=== PATIENT | male | born 1935 | race Caucasian/White ===

== ENCOUNTER 2021-09-11 15:29 | Inpatient (IN) | payer MEDICARE, OTHER ==
[~2021-09-11] VITALS: Ht 170.2 cm; Wt 54.6 kg
[2021-09-11] MEDS ORDERED: MULT-213 GT (16:09)
[2021-09-11] MEDS ORDERED: APLXABAN GT (16:09)
[2021-09-11] MEDS ORDERED: CHLO473M3 PO (16:09)
[2021-09-11] MEDS ORDERED: NA P133E RC (16:09)
[2021-09-11] MEDS ORDERED: AMIN30LI2 GT (16:09)
[2021-09-11] MEDS ORDERED: ACET-2605 GT (16:09)
[2021-09-11] MEDS ORDERED: ZINC SULFATE GT (16:09)
[2021-09-11] MEDS ORDERED: ASCO500C18 GT (16:09)
[2021-09-11] MEDS ORDERED: MAG355OR18 GT (16:09)
[2021-09-11] MEDS ORDERED: ACET-2154 GT (16:09)
[2021-09-11] MEDS ORDERED: METO50TA16 GT (16:09)
[2021-09-11 16:13] LABS: HEMATOCRIT 31.3 % (36.7-47.1); MEAN CORPUSCULAR HEMOGLOBIN 29.9 uug (23.8-33.4); MEAN CORPUSCULAR VOLUME 91.4 fL (73.0-96.2); PLATELET COUNT (AUTO) 632 K/uL (152-348)
[2021-09-11] MEDS ORDERED: IV NORMAL SALINE 1000 ML BAG IV ONE (16:30)
[2021-09-11 16:32] LABS: ALANINE AMINOTRANSFERASE 31 U/L (16-63); ALKALINE PHOSPHATASE 95 U/L (50-136); ASPARTATE AMINOTRANSFERASE 20 U/L (15-37); BILIRUBIN,DIRECT 0.1 mg/dL (0.0-0.2); BILIRUBIN,TOTAL 0.3 mg/dL (0.2-1.0); CARBON DIOXIDE 27 mmol/L (21-32); CHLORIDE 115 mmol/L (98-107); CREATININE 1.3 mg/dL (0.6-1.3); GLUCOSE 130 mg/dL (74-106); POTASSIUM 5.1 mmol/L (3.5-5.1); TOTAL PROTEIN, SERUM 5.7 g/dL (6.4-8.2); UREA NITROGEN, BLOOD 55 mg/dL (7-18)
--- NOTE | 2021-09-11 16:43 | NUR ---
Dr Garcia signed consent for IV contrasted CTs, placed in the chart.
[2021-09-11] MEDS ORDERED: SWABABLE VALVE TRANSFER SET EA MC ONE (16:58)
[2021-09-11] MEDS ORDERED: IV NORMAL SALINE 250 ML IV ONE (16:58)
[2021-09-11] MEDS ORDERED: IOHEXOL 350 100 ML INFUS..BTL ONE (16:58)
--- NOTE | 2021-09-11 17:02 | NUR ---
Pt out of ER for Ct scan.
[2021-09-11] MEDS ORDERED: IV 1/2NS 1000 ML 1,000 ML IV ONE (17:30)
--- NOTE | 2021-09-11 17:50 | NUR ---
Urine collected and sent to Lab, pt had x1 green water consistency BM.
[2021-09-11 17:56] LABS: *BILIRUBIN,URIN NEGATIVE (NEGATIVE); *CLARITY,URINE CLEAR (CLEAR); *COLOR,URINE YELLOW (YELLOW); *KETONES,URINE NEGATIVE (NEGATIVE); *UROBILINOGEN,URINE 0.2 E.U./dl (NORMAL); LEUKOCYTE ESTERASE ,URINE NEGATIVE (NEGATIVE); NITRITE, URINE NEGATIVE (NEGATIVE); PH,URINE 6.5 (5.0-8.0); UGLUCOSE NEGATIVE (NEGATIVE)
[2021-09-11] MEDS ORDERED: VANCOMYCIN IV 1,000 MG in IV DEXTROSE 5% 250 ML IV ONE (18:15)
[2021-09-11] MEDS ORDERED: PIPERACILLIN SODIUM/TAZOBACTAM 3.375 G in IV DEXTROSE 5% 50 ML IV ONE (18:15)
[2021-09-11] MEDS ORDERED: VANCOMYCIN IV 200 ML ONE (18:22)
[2021-09-11] MEDS ORDERED: PIPERACILLIN/TAZOBACTAM/D5W 50 ML IV ONE (18:22)
[2021-09-11 18:24] LABS: *BLOOD, URINE TRACE (NEGATIVE)
[2021-09-11 18:51] LABS: BACTERIA,URINE NONE SEEN /HPF (NONE SEEN); RBC,URINE 0-3 /HPF (0-3); SQUAMOUS EPITHELIAL CELL,UR FEW /HPF (NONE SEEN); WBC,URINE 0-3 /HPF (0-3)
[2021-09-11 19:12] LABS: BAND % (MANUAL) 8 % (0-10); LYMPHOCYTES % (MANUAL) 10 % (20-40); MONOCYTES % (MANUAL) 3 % (2-10); NEUTROPHILS % (MANUAL) 79 % (42-75)
--- NOTE | 2021-09-11 19:14 | NUR ---
pt contraced lower extremities, placed chief commercial officer on pt. does not exhibit signs of pain or distress. Awaiting results of cat scans then call will be placed to Dr. Grimaldo.
--- NOTE | 2021-09-11 19:46 | NUR ---
cat scan results available, Dr. Macario is aware. Per his request call to [facility] Dr. Grimaldo.
--- NOTE | 2021-09-11 20:06 | NUR ---
second call to Dr. Grimaldo EPIC panel.
--- NOTE | 2021-09-11 20:07 | NUR ---
Dr. Grimaldo called back to speak with Dr. Macario.
--- NOTE | 2021-09-11 20:33 | NUR ---
informed by Catrachita CANNON that nurse for pt will be Tiffani and pt will go to room 315. Called to give report to Tiffani and informed that she is unavailalbe, requessted for her to call me back.
--- NOTE | 2021-09-11 20:45 | NUR ---
report given to Tiffani CANNON.
[2021-09-11] MEDS ORDERED: ACETAMINOPHEN 650 MG SUPP.RECT RC PRN (21:00)
[2021-09-11] MEDS ORDERED: MORPHINE SULFATE 2 MG/1 ML DISP.SYRIN IV PRN (21:00)
--- NOTE | 2021-09-11 21:32 | NUR ---
pt transported to room 315 via [facility] with all belongings, KASSANDRA Nixon at bedside to receive the pt.
--- NOTE | 2021-09-11 21:33 | NUR ---
Received pt from er via [facility].Under the care of Dr. Beltran. Dx: Colitis, Sepsis. Admission process and care plain initiated. No belongings noted. Pt had multiple skin issues. senior living assessment done.Pt on room air. Safety and comfort provided. Will continue to monitor.
[2021-09-11 22:09] VITALS: BP 103/47
--- NOTE | 2021-09-11 22:27 | NUR ---
Notify Dr. Beltran regarding pt lactic acid of 3. aware and placed an order.
[2021-09-11] MEDS: IV D5/ 0.9% NACL 1,000 ML IV PRN (23:20)
[2021-09-12] MEDS ORDERED: REMEDY ESSENTIAL ZINC PASTE 113 GM TOP PRN (01:15)
[2021-09-12] MEDS ORDERED: PIPERACILLIN SODIUM/TAZO 3.375 GM VIAL ONE (01:29)
[2021-09-12] MEDS ORDERED: PIPERACILLIN SODIUM/TAZOBACTAM 3.375 G in IV DEXTROSE 5% 50 ML IV SCH ×2 (02:00→10:00)
[2021-09-12 04:12] VITALS: BP 105/51
[2021-09-12 05:59] LABS: HEMATOCRIT 28.9 % (36.7-47.1); MEAN CORPUSCULAR VOLUME 92.8 fL (73.0-96.2); PLATELET COUNT (AUTO) 520 K/uL (152-348)
--- NOTE | 2021-09-12 06:01 | NUR ---
Pt slept intermittently. Pt in no acute distress. Pt IV intact. Pt turned and repositioned. Prescribed medication given and pt tolerated it well. Pt on contact isolation for possible cdiff. Pt vital signs within normal limit. Pt on sinus rhythm. On 0230h pt had episode of SVT-145 with 17 beats . Safety and comfort provided. Will endorse to incoming nurse for continuity of care.
[2021-09-12 06:25] LABS: BILIRUBIN,TOTAL 0.6 mg/dL (0.2-1.0); CREATININE 1.3 mg/dL (0.6-1.3); MAGNESIUM 3.5 mg/dL (1.8-2.4); PHOSPHOROUS 5.9 mg/dL (2.5-4.9); POTASSIUM 4.4 mmol/L (3.5-5.1)
[2021-09-12] MEDS ORDERED: JEVITY 1.2 1000 ML LIQUID GT PRN (06:30)
--- NOTE | 2021-09-12 07:30 | NUR ---
Received in bed resting arousable to stimuli non verbal. No sob or facial grimacing noted. Contact isolation for c. diff observed. No acute distress. IV fluids running and tolerated no signs of infiltration noted on LFA iv site. Patient appears comfortable. Safety maintained. Call light in reach. Addendum: 09/12/21 at 0755 by FAYE SAAB RN SR on telemonitor.
--- NOTE | 2021-09-12 07:33 | NUR ---
critical lab result albumin 1.4. Notify Tomy COOK STARCH. Tomy COOK STARCH ordered malnutrition consult. Endorse to incoming nurse for continuity of care.,
[2021-09-12 08:13] LABS: *BILIRUBIN,URIN NEGATIVE (NEGATIVE); *BLOOD, URINE NEGATIVE (NEGATIVE); *CLARITY,URINE CLEAR (CLEAR); *COLOR,URINE YELLOW (YELLOW); *KETONES,URINE NEGATIVE (NEGATIVE); LEUKOCYTE ESTERASE ,URINE NEGATIVE (NEGATIVE); NITRITE, URINE NEGATIVE (NEGATIVE); UGLUCOSE NEGATIVE (NEGATIVE)
[2021-09-12] MEDS: PIPERACILLIN/TAZO 2.25 G in IV DEXTROSE 5% 50 ML IV SCH ×2 (09:01→13:03)
[2021-09-12] MEDS: PANTOPRAZOLE SODIUM 40 MG VIAL IV SCH (09:01)
[2021-09-12] MEDS: JEVITY 1.2 1000 ML LIQUID GT PRN ×2 (09:09→14:16)
[2021-09-12 10:20] LABS: *CREATININE,URINE 69.7 mg/dL (30-125); *URINE TOTAL PROTEIN RANDOM < 6.0 mg/dL (<150/24HR)
--- NOTE | 2021-09-12 10:39 | NUR ---
Unable to hang patient's tube feeding Jevity d/t Lyle valve doesn't fit into patient's tube. Spoke to Alberto at [employer] an dasked if we have the enfit connector but stated we don't have it. He called [employer] but they only carry lyle valve also. Discussed with Sharyn Huitron during rounds but said to ask dietary. Called Bouchra from [facility] and provided information stated she will talk with director and get back to me. Also called son Aguila to ask if he can get connector from [employer] and bring some but unable to. Called [facility] and was told by office coordinator receptionist Dina to call back later bec RN survey supervisor and DON are both busy in a meeting. Will cont to follow up.
[2021-09-12 12:00] VITALS: BP_SYST 119; BP_SYST 82; BP_DIAS 45; BP_DIAS 48
--- NOTE | 2021-09-12 12:05 | NUR ---
Pt checked by wound nurse Ina.
--- NOTE | 2021-09-12 12:16 | NUR ---
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 LEGS NOTED TO BE CONTRACTED. RECOMMENDATIONS MADE FOR SKIN PROTECTION. DISCUSSED WITH NURSING STAFF. FIRST STEP LOW AIRLOSS MATTRESS IS ON ORDER. SURGICAL AND DPM CONSULTS MADE TO DR ALVAREZ AND DR HAMPAPUR. CISNEROS IN AGREEMENT WITH PLAN OF CARE. Addendum: 09/12/21 at 1218 by ISABELA SANTOS RN Amended: Links added.
[2021-09-12] MEDS: IV D5/ 0.9% NACL 1,000 ML IV PRN (13:03)
--- NOTE | 2021-09-12 14:15 | NUR ---
Jose Sheehan is here and updated on condition. no complaints at this time.
[2021-09-12] MEDS: THERAHONEY GEL 1.5 OZ TUBE TOP SCH (15:22)
[2021-09-12 16:00] VITALS: BP 116/60
--- NOTE | 2021-09-12 17:35 | NUR ---
INDUCTION MACHINE OPERATOR Tomy notified of lactic acid 3.5 with oder for D51/2NS 1 Liter bolus noted.
[2021-09-12] MEDS: IV D5 1/2 NS 1000 ML 1,000 ML IV PRN (17:40)
--- NOTE | 2021-09-12 18:22 | NUR ---
APPLIED WOUND DRESSING TO MULTIPLE PRESSURE ULCERS INCLUDING LATERAL FEET, DEEP TISSUE INJURY TO SACRUM, SCARRING TO MIDBACK AREA, RT BUTTOCK UNSTAGEABLE ULCER AND LEFT BUTTOCK
[2021-09-12] MEDS ORDERED: IV D5 1/2 NS 1000 ML 1,000 ML IV PRN ×2 (18:26→18:30)
--- NOTE | 2021-09-12 19:19 | NUR ---
d5 1/2ns 1 liter bolus infused as ordered. pt tolerated. no sob noted. no facial grimacing noted. kept comfortable. needs attended.
--- NOTE | 2021-09-12 19:30 | NUR ---
MD Canales notified of Lactic acid results 3.8. Per MD give 1L D5 1/2 NS Bolus, repeat lactic acid lab.
[2021-09-12 20:00] VITALS: BP 102/56
[2021-09-12] MEDS ORDERED: VANCOMYCIN IV 750 MG in IV DEXTROSE 5% 250 ML IV SCH (20:00)
[2021-09-12] MEDS ORDERED: IV D5 1/2 NS 1000 ML 1,000 ML IV ONE (20:45)
--- NOTE | 2021-09-12 23:00 | NUR ---
Lactic acid result 4.8, MD notified. Per MD, order ABG. Will continue to closely monitor.
[2021-09-12] MEDS: METRONIDAZOLE 500 MG TABLET PO SCH (23:33)
[2021-09-12 23:34] LABS: ABG BASE EXCESS -1.3 mmol/L; ABG HCO3 21.5 mmol/L; ABG PCO2 28.7 mmHg (35.0-45.0); ABG PH 7.493 (7.350-7.450); ABG PO2 98.5 mmHg (75.0-100.0); ABG SITE RIGHT RADIAL; ABG TOTAL HEMOGLOBIN 8.2 G/dL (13.5-18.0); COHb 0.3 % (0.5-1.5); MetHb 0.2 % (0.0-1.5); O2Hb 96.9 % (94.0-97.0); VENT MODE Nasal Cannula
[2021-09-13] VITALS (22 sets, daily range): BP systolic 80–114; BP diastolic 38–74
[2021-09-13] MEDS ORDERED: IV D5 1/2 NS 1000 ML 1,000 ML IV ONE ×2 (00:30→10:30)
--- NOTE | 2021-09-13 00:30 | NUR ---
Per MD Garcia, give 1L D5 1/2 NS bolus and chest xray in am. No signs of acute distress.
[2021-09-13] MEDS: METRONIDAZOLE 500 MG TABLET PO SCH ×3 (05:52→21:21)
[2021-09-13 06:33] LABS: POTASSIUM 3.5 mmol/L (3.5-5.1)
[2021-09-13 06:34] LABS: BILIRUBIN,TOTAL 0.2 mg/dL (0.2-1.0); CREATININE 0.9 mg/dL (0.6-1.3); MAGNESIUM 2.9 mg/dL (1.8-2.4); PHOSPHOROUS 2.6 mg/dL (2.5-4.9); TOTAL PROTEIN, SERUM 4.5 g/dL (6.4-8.2)
[2021-09-13 06:50] LABS: HEMATOCRIT 26.1 % (36.7-47.1); MEAN CORPUSCULAR HEMOGLOBIN 30.1 uug (23.8-33.4); MEAN CORPUSCULAR VOLUME 93.2 fL (73.0-96.2); PLATELET COUNT (AUTO) 406 K/uL (152-348)
--- NOTE | 2021-09-13 07:00 | NUR ---
Pt on Gtube feeding Jevity 1.2 at 50 mls/hr. On air mattress with HOB elevated. Wound care dressing done on R/L Buttocks, Sacrum, L/R Heels and side of heels. Pt is on D5 1/2 NS at 100 mls/hr. No signs of acute distress noted at this time. Call lights within reach. Safety measures maintained. Will endorse to am shift.
--- NOTE | 2021-09-13 07:30 | NUR ---
received patient on 0.5L o2 via NC, oral hygiene done, suctioned as needed. Patient is for midline insertion today. not in acute distress. will continue to monitor.
[2021-09-13] MEDS: IV D5 1/2 NS 1000 ML 1,000 ML IV PRN ×2 (08:31→21:01)
[2021-09-13] MEDS: PANTOPRAZOLE SODIUM 40 MG VIAL IV SCH (08:31)
[2021-09-13] MEDS: THERAHONEY GEL 1.5 OZ TUBE TOP SCH (08:32)
[2021-09-13] MEDS ORDERED: CEFTRIAXONE 1 G in IV DEXTROSE 5% 50 ML IV SCH (09:00)
--- NOTE | 2021-09-13 10:30 | NUR ---
Dr Coles, HARBORMASTER ORDER TRANSFER PATIENT TO [facility]. BP READING 89/40mmHg. MD order D51/2NS bolus, BP remained low in reading. will continue to monitor.
[2021-09-13] MEDS: MEROPENEM 0.5 G in IV NORMAL SALINE 50 ML IV SCH ×4 (11:03→21:21)
--- NOTE | 2021-09-13 12:00 | NUR ---
report given to MATHS TUTOR for continuity of care.
[2021-09-13 12:24] LABS: ABG BASE EXCESS -4.8 mmol/L; ABG PH 7.475 (7.350-7.450); ABG PO2 123.2 mmHg (75.0-100.0); ABG SITE RIGHT RADIAL; ABG TOTAL HEMOGLOBIN 7.7 G/dL (13.5-18.0); COHb 0.3 % (0.5-1.5); MetHb 0.6 % (0.0-1.5); O2Hb 97.8 % (94.0-97.0); VENT MODE Nasal Cannula
--- NOTE | 2021-09-13 12:30 | NUR ---
patient was transferred to ICU via hospital bed as ordered with BAFFLE MOUNTER and RT.
[2021-09-13] MEDS ORDERED: NOREPINEPHRINE BITARTRATE 8 MG in IV NORMAL SALINE 242 ML IV PRN (13:00)
--- NOTE | 2021-09-13 13:39 | NUR ---
[facility] called for results. patient is positive for Cdiff.
--- NOTE | 2021-09-13 14:00 | NUR ---
Sharyn in the unit for reevaluation of patient. ordered for x2 500ml gentle bolus and recheck lactic acid.
--- NOTE | 2021-09-13 14:10 | NUR ---
lactic acid trending back down to 3.3 lab reported and read back.
--- NOTE | 2021-09-13 14:30 | NUR ---
dr. Swanson in the unit to see patient.
[2021-09-13] MEDS: IV NS 1000 ML 500 ML IV PRN ×2 (15:00→17:04)
[2021-09-13] MEDS: VANCOMYCIN FOR PO/GT/NG USE PO SCH (18:04)
--- NOTE | 2021-09-13 19:10 | NUR ---
RECEIVED PATIENT AWAKE , UNABLE TO FOLLOW COMMAND , ON NC 1 L , WITH MULTIPLE WOUNDS , MID LINE INTACT LEFT UPPER ARM , SUERO DRAINING , INCONTINENT OF BOWEL MOVEMENTS , TF , RUNNING AT 50 ML , NO RESIDUAL NOTED , NO FEVER
--- NOTE | 2021-09-13 21:39 | NUR ---
lexi teixeira aware of current lactic acid and antibiotics and iv running
--- NOTE | 2021-09-13 21:39 | NUR ---
puneet , id is here to see patient , updates given on the patient's condition
[2021-09-14] VITALS (22 sets, daily range): BP systolic 92–147; BP diastolic 53–89
[2021-09-14 05:18] LABS: HEMATOCRIT 26.5 % (36.7-47.1); MEAN CORPUSCULAR HEMOGLOBIN 30.2 uug (23.8-33.4); MEAN CORPUSCULAR VOLUME 92.8 fL (73.0-96.2); PLATELET COUNT (AUTO) 430 K/uL (152-348)
[2021-09-14 05:34] LABS: CREATININE 0.9 mg/dL (0.6-1.3); MAGNESIUM 2.4 mg/dL (1.8-2.4); PHOSPHOROUS 3.1 mg/dL (2.5-4.9); POTASSIUM 4.3 mmol/L (3.5-5.1)
[2021-09-14] MEDS: MEROPENEM 0.5 G in IV NORMAL SALINE 50 ML IV SCH (06:04)
[2021-09-14] MEDS: METRONIDAZOLE 500 MG TABLET PO SCH ×3 (06:04→21:17)
[2021-09-14] MEDS: IV D5 1/2 NS 1000 ML 1,000 ML IV PRN ×2 (08:15→22:14)
[2021-09-14] MEDS: PANTOPRAZOLE SODIUM 40 MG VIAL IV SCH (09:01)
[2021-09-14] MEDS: VANCOMYCIN FOR PO/GT/NG USE PO SCH ×2 (09:01→18:02)
[2021-09-14] MEDS ORDERED: IV D5 1/2 NS 1000 ML 1,000 ML IV ONE (09:45)
[2021-09-14] MEDS: THERAHONEY GEL 1.5 OZ TUBE TOP SCH ×2 (10:51)
[2021-09-14] MEDS: JEVITY 1.2 1000 ML LIQUID GT PRN (13:45)
[2021-09-14 14:06] LABS: A/G RATIO 0.6 (0.7-1.7); ALBUMIN 1.5 g/dL (2.9-4.4); ALPHA-1-GLOBULIN 0.3 g/dL (0.0-0.4); ALPHA-2-GLOBULIN 0.8 g/dL (0.4-1.0); BETA GLOBULIN 0.7 g/dL (0.7-1.3); GAMMA GLOBULIN 0.9 g/dL (0.4-1.8); GLOBULIN, TOTAL 2.7 g/dL (2.2-3.9); M-SPIKE Not Observed g/dL (Not Observed)
[2021-09-14] MEDS: MEROPENEM 1 G in IV NORMAL SALINE 100 ML IV SCH ×2 (15:15→21:16)
[2021-09-14] MEDS: ARGININE/GLUTAMINE/CALCIUM BMB 1 EACH POWD.PACK GT SCH (18:13)
--- NOTE | 2021-09-14 19:30 | NUR ---
received patient awake , gt running at 60 ml / hr , no residual noted , picc line girma , olson and rectal tube intact , on room air , no fever noted , multiple wounds with thera honey and mepilex intact
--- NOTE | 2021-09-14 20:30 | NUR ---
spoke to the family , updates given on the patient's condition
--- NOTE | 2021-09-14 22:20 | NUR ---
nera id is here to see patient , updates given abou the patient's condition
[2021-09-15] VITALS (9 sets, daily range): BP systolic 94–133; BP diastolic 59–80
[2021-09-15 04:51] LABS: HEMATOCRIT 23.8 % (36.7-47.1); MEAN CORPUSCULAR VOLUME 92.5 fL (73.0-96.2); PLATELET COUNT (AUTO) 354 K/uL (152-348)
[2021-09-15 05:05] LABS: CREATININE 0.6 mg/dL (0.6-1.3); MAGNESIUM 2.1 mg/dL (1.8-2.4); PHOSPHOROUS 2.2 mg/dL (2.5-4.9); POTASSIUM 3.6 mmol/L (3.5-5.1)
[2021-09-15] MEDS: MEROPENEM 1 G in IV NORMAL SALINE 100 ML IV SCH ×3 (05:20→21:05)
[2021-09-15] MEDS: METRONIDAZOLE 500 MG TABLET PO SCH ×3 (05:20→21:04)
--- NOTE | 2021-09-15 07:37 | NUR ---
Received blood transfusion and thoracentesis consent from mauricio Carpenter via telephone. Will closely monitor. Addendum: 09/15/21 at 0844 by ADRIEL GARRIDO RN incorrect pt
[2021-09-15] MEDS: PANTOPRAZOLE SODIUM 40 MG VIAL IV SCH (09:23)
[2021-09-15] MEDS: ARGININE/GLUTAMINE/CALCIUM BMB 1 EACH POWD.PACK GT SCH ×2 (09:29→17:06)
[2021-09-15] MEDS: VANCOMYCIN FOR PO/GT/NG USE PO SCH ×2 (09:29→17:06)
[2021-09-15] MEDS: JEVITY 1.2 1000 ML LIQUID GT PRN ×2 (10:01→20:18)
[2021-09-15] MEDS: THERAHONEY GEL 1.5 OZ TUBE TOP SCH ×2 (10:11)
[2021-09-15] MEDS ORDERED: POTASSIUM PHOSPHATE MM 15 MMOL in IV NORMAL SALINE 250 ML IV ONE (11:00)
[2021-09-15] MEDS ORDERED: NEUTRA PHOS PACKET GT ONE (15:15)
--- NOTE | 2021-09-15 17:10 | NUR ---
patient transferred to telemetry unit, alert, responsive to verball and tactile stimuli, comfortable, vitals 136/60 , p 95.rr 19 O2 sat 98 room air...
--- NOTE | 2021-09-15 17:15 | NUR ---
Received report from Nurse Oropeza from ICU. Pt is currently on telemetry floor. Pt is nonverbal, bilateral mittens on due to pulling on lines and interrupting care. Pt Picc line intact and patent, bilateral DVT pumps in place. Vitals: 97.7 T, BP 133/61, HR 90 (chronic a fib on telemetry), SpO2 100% on room air, rr 18. Applied Mepilex to open wound on hip. Drainage noted from left forearm. Comfort measures provided, will closely monitor pt.
--- NOTE | 2021-09-15 19:35 | NUR ---
Patient awake eyes open but non verbal, hob elevated, on GTF tolerate well, no nausea no vomiting, no residual noted. Patient has rectal tube to LBM and c diff infection, contact isolation observed. Patient has no s/s of pain or discomfort, turn and reposition, olosn cath patent, cont to monitor.
--- NOTE | 2021-09-15 19:40 | NUR ---
Patient on tele monitor sinus rhythm, sinus tachy up to 112. Patient saturation 94% on room air. cont to monitor.
[2021-09-16 00:16] VITALS: BP 112/66
[2021-09-16 04:20] VITALS: BP 114/63
--- NOTE | 2021-09-16 05:07 | NUR ---
Patient awake, hob elevated tolerate feeding, rectal tube draining with brownish color feces in moderate amount, patient remains on contact isolation for cdiff, good hand washing observe. Patient confused, multiple attempts to pulled out iv lines, patient un redirectable, cont to monitor.
[2021-09-16] MEDS: METRONIDAZOLE 500 MG TABLET PO SCH ×3 (05:29→21:30)
[2021-09-16] MEDS: MEROPENEM 1 G in IV NORMAL SALINE 100 ML IV SCH ×2 (05:29→13:59)
[2021-09-16 06:14] LABS: HEMATOCRIT 23.3 % (36.7-47.1); MEAN CORPUSCULAR HEMOGLOBIN 30.2 uug (23.8-33.4); MEAN CORPUSCULAR VOLUME 91.8 fL (73.0-96.2); PLATELET COUNT (AUTO) 378 K/uL (152-348)
[2021-09-16 06:35] LABS: CREATININE 0.6 mg/dL (0.6-1.3); MAGNESIUM 1.9 mg/dL (1.8-2.4); PHOSPHOROUS 2.2 mg/dL (2.5-4.9); POTASSIUM 3.9 mmol/L (3.5-5.1)
--- NOTE | 2021-09-16 08:10 | NUR ---
Received patient report from PM nurse. Arrived to patient awake,with head of bed elevated tolerating feeding. Patient's G-Tube to stop at 1800. Patient's IV site intact and patent. Bed left in lowest position.
[2021-09-16] MEDS: PANTOPRAZOLE SODIUM 40 MG VIAL IV SCH (08:58)
[2021-09-16] MEDS: THERAHONEY GEL 1.5 OZ TUBE TOP SCH ×2 (09:07)
[2021-09-16] MEDS: ARGININE/GLUTAMINE/CALCIUM BMB 1 EACH POWD.PACK GT SCH ×2 (09:41→17:44)
[2021-09-16] MEDS: VANCOMYCIN FOR PO/GT/NG USE PO SCH ×2 (09:41→17:46)
--- NOTE | 2021-09-16 10:35 | NUR ---
Spoke to Dr. Swanson and Sharyn BLANCO regarding patient's current labs: Hematocrit: 7.7 and Hemoglobin: 22.3
[2021-09-16 11:00] VITALS: BP 94/51
[2021-09-16] MEDS: JEVITY 1.2 1000 ML LIQUID GT PRN (14:56)
[2021-09-16 15:06] VITALS: BP 95/48
[2021-09-16] MEDS ORDERED: SODIUM PHOSPHATE MM 15 MMOL in IV NORMAL SALINE 250 ML IV ONE (16:15)
--- NOTE | 2021-09-16 18:01 | NUR ---
G-Tube feeding stopped. Patient to begin feeding again at 1999. Will endorse information to PM nurse.
--- NOTE | 2021-09-16 20:05 | NUR ---
Patient awake eyes open, hob elevated, on GTF tolerate well, no residual noted, no nausea no vomiting noted, patient rectal tube draining with watery white feces in moderate amount. Patient has multiple attempt of pulling out iv lines, patient confused unable to follow instructions, check hand mitten for placement and circulation. Patient turn and reposition every two hours, on air loss mattres, patient has moist cough, but no sputum observed, kept hob elevated, sat wnl. on tele sinus rhythm, sinus tachy. cont to monitor.
[2021-09-16 20:24] VITALS: BP 112/58
[2021-09-17 00:36] VITALS: BP 98/67
[2021-09-17 04:50] VITALS: BP 104/68
[2021-09-17] MEDS: METRONIDAZOLE 500 MG TABLET PO SCH ×2 (06:26→15:11)
[2021-09-17 06:39] LABS: HEMATOCRIT 23.7 % (36.7-47.1); MEAN CORPUSCULAR HEMOGLOBIN 29.8 uug (23.8-33.4); MEAN CORPUSCULAR VOLUME 92.2 fL (73.0-96.2); PLATELET COUNT (AUTO) 362 K/uL (152-348)
[2021-09-17 06:58] LABS: CARBON DIOXIDE 22 mmol/L (21-32); CHLORIDE 114 mmol/L (98-107); CREATININE 0.5 mg/dL (0.6-1.3); GLUCOSE 101 mg/dL (74-106); PHOSPHOROUS 2.5 mg/dL (2.5-4.9); UREA NITROGEN, BLOOD 24 mg/dL (7-18)
[2021-09-17] MEDS ORDERED: IV NORMAL SALINE 500 ML IV ONE (09:30)
[2021-09-17] MEDS: ARGININE/GLUTAMINE/CALCIUM BMB 1 EACH POWD.PACK GT SCH ×2 (09:46→17:51)
[2021-09-17] MEDS: THERAHONEY GEL 1.5 OZ TUBE TOP SCH ×2 (09:46→09:48)
[2021-09-17] MEDS: PANTOPRAZOLE SODIUM 40 MG VIAL IV SCH (09:46)
[2021-09-17] MEDS: VANCOMYCIN FOR PO/GT/NG USE PO SCH ×2 (10:01→17:51)
[2021-09-17] MEDS ORDERED: NUTR1PAC14 GT (14:05)
[2021-09-17] MEDS ORDERED: VANC500V PO (14:05)
[2021-09-17 15:48] VITALS: BP 110/66
--- NOTE | 2021-09-17 19:00 | NUR ---
RECEIVED PT IN NO ACUTE DISTRESS. PT ON ROOM AIR. WILL BE DISCHARGE AT 2030H. NEED TO TAKE PICTURES FOR DISCHARGE. PT IN NO RESTRAINT.SAFETY AND COMFORT PROVIDED.WILL CONTINUE TO MONITOR.
[2021-09-17 20:24] VITALS: BP 128/68
[2021-09-17 20:26] VITALS: BP 128/68
--- NOTE | 2021-09-17 21:15 | NUR ---
PT DISCHARGED AND WHEELED OUT VIA GURNEY.. PT IN NO ACUTE DISTRESS.PT IV TAKEN OFF AND ID BAND TAKEN OFF. DISCHARGE PAPERS GIVEN TO SHASTA OF [facility]. CALLED LEE CANNON OF [facility] TO GIVE REPORT AT 2030H .PT HAD MULTIPLE SKIN ISSUES AND PICTURES TAKEN. PT ON CONTACT ISOLATION OF CDIFF. PT CAN'T SIGN DISCHARGE PAPERS AND COSIGNED WITH ANOTHER RN FOR DISCHARGE PAPERS. PT WILL LEAVE WITH SUERO CATHETER AND RECTAL TUBE . PT ON ROOM AIR. PT VITAL SIGNS WITHIN NORMAL LIMIT.
== END 2021-09-17 21:30 | DRG 871 ==
LOC: ER 15:29 → TELE3 20:51 → CCU 09-13 12:49 → TELE3 09-15 17:54
PROVIDERS: ADMIT Internal Medicine; ATTEND Registered Nurse
PROC: 05HC33Z Insertion of Infusion Device into Left Basilic Vein, Percutaneous Approach (ICD-10-PCS; principal; 2021-09-13)
PROC: 02HV33Z Insertion of Infusion Device into Superior Vena Cava, Percutaneous Approach (ICD-10-PCS; 2021-09-14)
PROC: 0JB93ZZ Excision of Buttock Subcutaneous Tissue and Fascia, Percutaneous Approach (ICD-10-PCS; 2021-09-14)
PROC: 0HDNXZZ Extraction of Left Foot Skin, External Approach (ICD-10-PCS; 2021-09-14)
PROC: 0HDMXZZ Extraction of Right Foot Skin, External Approach (ICD-10-PCS; 2021-09-14)
DX: A41.9 Sepsis, unspecified organism (principal); G92.8 Other toxic encephalopathy; N17.0 Acute kidney failure with tubular necrosis; L89.893 Pressure ulcer of other site, stage 3; L89.323 Pressure ulcer of left buttock, stage 3; L89.313 Pressure ulcer of right buttock, stage 3; E43 Unspecified severe protein-calorie malnutrition; R65.21 Severe sepsis with septic shock; A04.72 Enterocolitis due to Clostridium difficile, not specified as recurrent; K51.00 Ulcerative (chronic) pancolitis without complications; E87.0 Hyperosmolality and hypernatremia; J98.11 Atelectasis; G82.20 Paraplegia, unspecified; Z68.1 Body mass index [BMI] 19.9 or less, adult; D68.59 Other primary thrombophilia; E87.2 Acidosis; D63.8 Anemia in other chronic diseases classified elsewhere; Z93.1 Gastrostomy status; G30.9 Alzheimer's disease, unspecified; F02.80 Dementia in other diseases classified elsewhere, unspecified severity, without behavioral disturbance, psychotic disturbance, mood disturbance, and anxiety; E86.0 Dehydration; R62.7 Adult failure to thrive; Z86.16 Personal history of COVID-19; I13.10 Hypertensive heart and chronic kidney disease without heart failure, with stage 1 through stage 4 chronic kidney disease, or unspecified chronic kidney disease; N18.9 Chronic kidney disease, unspecified; R13.10 Dysphagia, unspecified; Z74.09 Other reduced mobility; J44.9 Chronic obstructive pulmonary disease, unspecified; I70.0 Atherosclerosis of aorta; N40.0 Benign prostatic hyperplasia without lower urinary tract symptoms; K21.9 Gastro-esophageal reflux disease without esophagitis; I48.0 Paroxysmal atrial fibrillation; F32.A Depression, unspecified; F20.9 Schizophrenia, unspecified; F41.9 Anxiety disorder, unspecified; Z20.822 Contact with and (suspected) exposure to COVID-19; M24.561 Contracture, right knee; M24.562 Contracture, left knee; I67.2 Cerebral atherosclerosis; Z90.49 Acquired absence of other specified parts of digestive tract; Z87.891 Personal history of nicotine dependence; D75.839 Thrombocytosis, unspecified; I25.10 Atherosclerotic heart disease of native coronary artery without angina pectoris
CPT/HCPCS: 36415; 36569; 36600; 70030-TC; 70450; 71045; 83550; 83605; 83735; 83970; 84100; 84155; 84156; 84165; 84300; 84443; 84484; 85025; 85730; 87040; 87086; 93005; A4663; A6209; C1758; C9113; G0378; J0696; J2185; J2270; J2543; J3370; J3490; J7030; J7040; J7042; J7050; J7060; Q9967